=== PATIENT | female | born 1960 | race Caucasian/White ===

== ENCOUNTER 2017-02-02 09:09 | Emergency (ER) | payer OTHER ==
[~2017-02-02] VITALS: Ht 170.2 cm; Wt 54.5 kg
[2017-02-02] MEDS ORDERED: NORCO 325 MG-7.1 TAB PO (10:01)
[2017-02-02 10:23] VITALS: BP 115/74; PULSE 65; TEMP 97.8
== END 2017-02-02 10:34 | disposition home or self-care (01) ==
LOC: COL.ER 09:09
DX: S52.502A Unspecified fracture of the lower end of left radius, initial encounter for closed fracture (principal); S52.612A Displaced fracture of left ulna styloid process, initial encounter for closed fracture; W17.89XA Other fall from one level to another, initial encounter; Y92.009 Unspecified place in unspecified non-institutional (private) residence as the place of occurrence of the external cause
CPT/HCPCS: J1170; J2405; J2704; J7030

== ENCOUNTER → 2017-03-30 | Outpatient (CLI) | payer OTHER ==
[~2017-03-30] MED LIST: NORCO 325 MG-7.1 TAB PO
== END ==
LOC: MC.RAD 08:29
DX: Z12.31 Encounter for screening mammogram for malignant neoplasm of breast (principal)

== ENCOUNTER 2017-05-24 09:00 | Outpatient (RCR) | payer OTHER | END 2017-05-26 | LOC: WSOT | DX: Z47.89 Encounter for other orthopedic aftercare (principal); Z98.890 Other specified postprocedural states ==

== ENCOUNTER 2017-07-19 08:30 | Outpatient (RCR) | payer OTHER | END 2017-08-25 | disposition home or self-care (01) | LOC: WSOT | DX: Z47.89 Encounter for other orthopedic aftercare (principal); M89.8X8 Other specified disorders of bone, other site ==

== ENCOUNTER → 2019-02-15 | Outpatient (CLI) | payer OTHER | LOC: MC.RAD 08:09 | DX: Z12.31 Encounter for screening mammogram for malignant neoplasm of breast (principal) ==

== ENCOUNTER → 2020-04-05 | Outpatient (CLI) | payer BC | LOC: MC.RAD 14:21 | DX: Z12.31 Encounter for screening mammogram for malignant neoplasm of breast (principal) ==